=== PATIENT | female | born 1945 | race Caucasian/White ===

== ENCOUNTER 2024-04-01 13:58 | Emergency (ER) | payer MEDICARE, SELFPAY ==
[2024-04-01 14:07] VITALS: BP 152/79
--- NOTE | 2024-04-01 15:46 | ED.GENMED ---
History of Present Illness
General
Chief Complaint: Head Injury
Source: patient and spouse
Exam Limitations: none
Time Seen by Provider: 04/01/24 15:09
Nursing documentation reviewed up to this point in time: agreed with
Travel History
Have you had any contact with someone who has COVID-19?: No
Do you have any symptoms of coronavirus? Fever > 100 degrees, chills, cough, shortness of breath, sore throat, loss of taste or smell, muscle aches, or headache?: No
History of Present Illness
History of Present Illness:
78-year-old female presenting to the emergency department today after a fall hitting left side of her head. She claims that she got tripped up while gardening hit her left forehead think she may have hit a rock or her stool but is unsure noticed
bleeding from her head did not lose consciousness not on blood thinners denies any numbness weakness neck pain or additional concerns otherwise. She is unsure when her last tetanus shot was.
Review of Systems
Review of Systems
Allergies reviewed?: Yes
All Other Systems: ROS reviewed and negative except as documented in HPI and ROS
Phy Exam
Physical Exam
Physical Exam:
GENERAL: Alert , in no apparent distress
EYE: pupils equal and reactive
NECK: Supple, no significant adenopathy.
ENT: Oblique laceration to the left forehead 5 cm in length subcutaneous in depth. No foreign body seen. o/p clr, mmm.
CARDIAC: Regular rate and rhythm .
LUNGS: Clear breath sounds bilaterally, no acute respiratory distress, no wheezes/rales/rhonchi
ABDOMEN: Soft, without focal tenderness, no r/g, no cvat
NEUROLOGICAL: Alert and oriented, no focal neuro deficits
SKIN: Warm and dry, skin intact.
MUSCULOSKELETAL: No edema, well perfused.
PSYCH: Normal and appropriate interaction.
Course
Orders/Labs/Results
Orders:
Orders
04/01/24 14:08
CT Head W/o Iv Contrast Urgent
Comment:
Reason For Exam: Fall/Head injury
Vital Signs
Initial and Last Documented VS:
Initial Vital Signs
Temp Pulse Resp BP Pulse Ox
98.3 F 86 18 152/79 96
04/01/24 14:07 04/01/24 14:07 04/01/24 14:07 04/01/24 14:07 04/01/24 14:07
Last Documented Vital Signs
Temp Pulse Resp BP Pulse Ox
98.3 F 86 18 152/79 96
04/01/24 14:07 04/01/24 14:07 04/01/24 14:07 04/01/24 14:07 04/01/24 14:07
Procedures
Laceration Closure
Left Forehead:
Status of Wound: clean
Size of Wound in cm: 5
Description of Wound Edges: sharp
Preparation: cleaned with saline
Anesthesia: 1% Lidocaine with epi
Revision/Debridement: routine- no revision and irrigate-direct pressure
Wound exploration: explored to base- no FB and no tendon involvement
Type of Closure: single layer closure
Skin Closure Material: 5-0 chromic gut
Number of sutures: 7
MDM/Problems Addressed
MDM/Problems Addressed:
78-year-old female presenting to the emergency department today with concerns of laceration to her forehead after she tripped and fell in her garden hitting the left side of her forehead. CT scan was performed did not show any emergent findings.
Otherwise laceration was cleaned thoroughly and closed with sutures. No additional findings on exam otherwise well-appearing. Patient was given an updated tetanus shot otherwise stable for discharge.
*Critical Care Note
Total Time (30-74mins, 75-104mins- exclusive of procedures): Not Applicable
ED Attending Note
-
Portions of this chart may have been created with voice recognition software.� Occasional wrong word or��sound alike� substitutions may have occurred due to the inherent limitations of voice recognition software.
Discharge Plan
Departure
Patient Disposition: Home (Routine Discharge)
Date of Disposition: 04/01/24
Time of Disposition: 16:30
Patient with high blood pressure during this ER visit?: No
Condition: Good
Covid-19: Not Applicable
Discharge Problem:
Forehead laceration
Instructions: Laceration Repair With Stitches (DC)
Referrals:
Azra Boston MD [Family Provider] -
Activity Restrictions/Additional Instructions:
You came to the emergency department today after a fall. Your head CT was normal. you have a laceration that was closed with 7-0 absorbable stitches. Please keep the area clean. Return to the emergency department for any worsening, new or
concerning symptoms.
Interventions
Interventions:
*Risk Screen - Suicide Last Done: 04/01/24 14:04
*General Assessment Last Done: 04/01/24 15:08
*Neglect/Abuse Screening Last Done: 04/01/24 14:04
*ED COVID-19 Vaccine History Last Done: 04/01/24 14:04
ED- Neurological Assessment Last Done: 04/01/24 15:08
ED-Skin Assessment Last Done: 04/01/24 15:08
Discharge Date and Time
Print Language: CUBAN
[2024-04-01] MEDS: ADACEL 0.5 ML IM (16:36)
== END 2024-04-01 16:44 | disposition home or self-care (01) ==
LOC: EMR 13:58
PROVIDERS: EMERGENCY PHYSICIAN Emergency Medicine; FAMILY PHYSICIAN Family Medicine
DX: S01.81XA Laceration without foreign body of other part of head, initial encounter (principal); W01.10XA Fall on same level from slipping, tripping and stumbling with subsequent striking against unspecified object, initial encounter; Y93.H2 Activity, gardening and landscaping; Y92.007 Garden or yard of unspecified non-institutional (private) residence as the place of occurrence of the external cause; I10 Essential (primary) hypertension; E78.5 Hyperlipidemia, unspecified; Z85.3 Personal history of malignant neoplasm of breast
CPT/HCPCS: 99284; 12013; 70450; 90715

== ENCOUNTER → 2025-10-18 09:43 | Outpatient (REF) | payer MEDICARE, SELFPAY | LOC: PAVMRI 09:43 | PROVIDERS: ATTENDING PHYSICIAN Psychiatry & Neurology Neurology; FAMILY PHYSICIAN Family Medicine | DX: I63.9 Cerebral infarction, unspecified (principal); R29.898 Other symptoms and signs involving the musculoskeletal system; R25.9 Unspecified abnormal involuntary movements | CPT/HCPCS: 70551; 72141 ==